=== PATIENT | male | born 1950 | race Hispanic/Latino ===

== ENCOUNTER 2024-10-04 15:38 | Inpatient (IN) | payer OTHER ==
[2024-10-04] MEDS ORDERED: Cefepime 2 GM VIAL ONE (16:34)
[2024-10-04 17:03] LABS: #Basophils 0.05 10x3/uL (0.0-0.2); #Eosinophils Less than 0.03 10x3/uL (0.0-0.7); #Monocytes 1.47 10x3/uL (0.11-0.59); #Neutrophils 19.02 10x3/uL (1.40-6.50); %Basophils 0.2 % (0.0-1.0); %Eosinophils 0.0 % (0.0-10.0); %Lymphocytes 6.7 % (21.0-51.0); %Monocytes 6.6 % (0.0-10.0); %Neutrophils 86.0 % (42.0-75.0); Hematocrit 34.2 % (42.0-52.0); Hemoglobin 11.5 g/dL (14.0-18.0); Mean Corpuscular Hemoglobin 29.0 pg (27.0-31.0); Mean Corpuscular Volume 86.1 fL (78.0-98.0); Platelet Count 427 10x3/uL (130-400); Red Blood Cell (RBC) Count 3.97 mill/uL (4.70-6.10); White Blood Cell (WBC) Count 22.15 10x3/uL (4.8-10.8)
[2024-10-04 17:26] LABS: Actual Bicarbonate (HCO3v) 22.6 mEq/L (22-28); Base Excess -2.1 mEq/L (-2.0 to +3.0); Calcium, Ionized (venous) 1.21 mmol/L (1.16-1.32); Chloride (VBG) 100 mmol/L (98-106); Hematocrit-VBG 35 % (42.0-52.0); Hemoglobin (Hb) 12.0 g/dL (12.6-17.4); Potassium (VBG) 4.34 mmol/L (3.70-5.30); Sodium 133 mmol/L (133-146)
[2024-10-04 17:26] LABS: ALT (SGPT) 25 U/L (Less than 45); AST (SGOT) 39 U/L (11-34); Albumin 3.0 g/dL (3.1-4.5); Alkaline Phosphatase 139 U/L (40-110); Anion Gap 15 mmol/L (10-20); BUN (Urea Nitrogen) 21 mg/dL (8.4-25.7); Bilirubin, Total 0.5 mg/dL (0.3-1.2); Calc. Creatinine Clearance 0 mL/min (70-130); Calcium 9.9 mg/dL (7.8-10.44); Carbon Dioxide 22 mmol/L (23-31); Chloride 98 mmol/L (98-107); Globulin 5.3 g/dL (2.4-3.5); Glucose 249 mg/dL (83-110); Potassium 4.3 mmol/L (3.5-5.1); Sodium 131 mmol/L (136-145)
[2024-10-04] MEDS ORDERED: VANCOMYCIN 2 GRAM/400 ML BAG ONE (17:26)
[2024-10-04] MEDS ORDERED: Electrolyte Replacement Protocol 1 EACH FS SCH (19:19)
[2024-10-04] MEDS ORDERED: Glucagon 1 MG/ML KIT IM PRN (19:33)
[2024-10-04] MEDS ORDERED: Dextrose 50% Abboject 50 ML SYRINGE SLOW IVP PRN (19:33)
[2024-10-04] MEDS ORDERED: Ondansetron PF 4 MG/2 ML Vial IVP PRN (19:35)
[2024-10-04] MEDS ORDERED: Acetaminophen/Codeine 30-300mg Tablet PO PRN (19:35)
[2024-10-04] MEDS ORDERED: Calcium Carbonate 500 MG ChewTAB PO PRN (19:35)
[2024-10-04 21:55] VITALS: BMI 29.3
[2024-10-04] MEDS: Heparin 5,000 UNITS/ML VIAL SC SCH (22:37)
[2024-10-04] MEDS: Famotidine 20 MG TAB PO SCH (22:37)
[2024-10-04] MEDS: Clindamycin/D5W 900 MG in Premix 1 BAG IVPB SCH (23:29)
[2024-10-05] MEDS: Insulin NPH Human Isophane 100 UNITS/ML (10 ML VIAL) SC SCH (01:57)
[2024-10-05 04:54] LABS: #Basophils 0.04 10x3/uL (0.0-0.2); #Eosinophils 0.08 10x3/uL (0.0-0.7); #Monocytes 1.07 10x3/uL (0.11-0.59); #Neutrophils 10.95 10x3/uL (1.40-6.50); %Basophils 0.3 % (0.0-1.0); %Eosinophils 0.6 % (0.0-10.0); %Lymphocytes 14.9 % (21.0-51.0); %Monocytes 7.5 % (0.0-10.0); %Neutrophils 76.3 % (42.0-75.0); Hematocrit 28.0 % (42.0-52.0); Hemoglobin 9.2 g/dL (14.0-18.0); Mean Corpuscular Hemoglobin 28.8 pg (27.0-31.0); Mean Corpuscular Volume 87.8 fL (78.0-98.0); Platelet Count 342 10x3/uL (130-400); Red Blood Cell (RBC) Count 3.19 mill/uL (4.70-6.10); White Blood Cell (WBC) Count 14.33 10x3/uL (4.8-10.8)
[2024-10-05 05:15] LABS: Vancomycin, Random 15.1 ug/mL (See Comment)
[2024-10-05 05:16] LABS: CRP, High Sensitivity at Bryan 8.41 mg/dL (< or = 0.5); Magnesium 1.6 mg/dL (1.6-2.6)
[2024-10-05 05:17] LABS: ALT (SGPT) 17 U/L (Less than 45); AST (SGOT) 19 U/L (11-34); Albumin 2.3 g/dL (3.1-4.5); Alkaline Phosphatase 106 U/L (40-110); Anion Gap 12 mmol/L (10-20); BUN (Urea Nitrogen) 20 mg/dL (8.4-25.7); Bilirubin, Total 0.3 mg/dL (0.3-1.2); Calc. Creatinine Clearance 86 mL/min (70-130); Calcium 8.8 mg/dL (7.8-10.44); Carbon Dioxide 20 mmol/L (23-31); Chloride 109 mmol/L (98-107); Globulin 4.0 g/dL (2.4-3.5); Glucose 200 mg/dL (83-110); Potassium 3.7 mmol/L (3.5-5.1); Sodium 137 mmol/L (136-145)
[2024-10-05] MEDS ORDERED: Lidocaine 1% (PF) 30 ML VIAL ONE (06:37)
[2024-10-05] MEDS ORDERED: PROPOFOL 20 ML ONE (07:13)
[2024-10-05] MEDS ORDERED: fentaNYL PF 100 MCG/2 ML SYRINGE ONE (07:13)
[2024-10-05] MEDS ORDERED: Ondansetron PF 4 MG/2 ML Vial ONE (07:47)
[2024-10-05] MEDS: Aspirin 81 mg Enteric Coated Tablet PO SCH (09:31)
[2024-10-05] MEDS: Lisinopril 5 MG TAB PO SCH (10:14)
[2024-10-05] MEDS: Magnesium 2 GM/50 ML(in water) Premix IVPB SCH ×2 (10:15→10:20)
[2024-10-05 10:44] VITALS: BMI 29.3
[2024-10-05] MEDS: Vancomycin 1 GM in Premix 1 BAG IVPB SCH (11:31)
[2024-10-05] MEDS: Vancomycin HCl 750 MG in Sodium Chloride 0.9% 250 ML 250 ML IVPB SCH (21:34)
[2024-10-06 05:14] LABS: #Basophils 0.04 10x3/uL (0.0-0.2); #Eosinophils 0.13 10x3/uL (0.0-0.7); #Monocytes 0.90 10x3/uL (0.11-0.59); #Neutrophils 11.55 10x3/uL (1.40-6.50); %Basophils 0.3 % (0.0-1.0); %Eosinophils 0.9 % (0.0-10.0); %Lymphocytes 15.3 % (21.0-51.0); %Monocytes 6.0 % (0.0-10.0); %Neutrophils 77.0 % (42.0-75.0); Hematocrit 27.6 % (42.0-52.0); Hemoglobin 9.2 g/dL (14.0-18.0); Mean Corpuscular Hemoglobin 29.0 pg (27.0-31.0); Mean Corpuscular Volume 87.1 fL (78.0-98.0); Platelet Count 371 10x3/uL (130-400); Red Blood Cell (RBC) Count 3.17 mill/uL (4.70-6.10); White Blood Cell (WBC) Count 14.99 10x3/uL (4.8-10.8)
[2024-10-06 05:52] LABS: ALT (SGPT) 14 U/L (Less than 45); AST (SGOT) 17 U/L (11-34); Albumin 2.2 g/dL (3.1-4.5); Alkaline Phosphatase 111 U/L (40-110); Anion Gap 11 mmol/L (10-20); BUN (Urea Nitrogen) 11 mg/dL (8.4-25.7); Bilirubin, Total 0.3 mg/dL (0.3-1.2); Calc. Creatinine Clearance 87 mL/min (70-130); Calcium 8.5 mg/dL (7.8-10.44); Carbon Dioxide 20 mmol/L (23-31); Chloride 109 mmol/L (98-107); Globulin 4.1 g/dL (2.4-3.5); Glucose 125 mg/dL (83-110); Magnesium 1.6 mg/dL (1.6-2.6); Potassium 3.9 mmol/L (3.5-5.1); Sodium 136 mmol/L (136-145)
[2024-10-06] MEDS: Magnesium 2 GM/50 ML(in water) 2 GM in Premix 1 BAG IVPB SCH (09:08)
[2024-10-06] MEDS: Acetaminophen 325 MG TAB PO PRN (11:51)
[2024-10-06] MEDS: Cefepime 2 GM VIAL ONE (16:32)
[2024-10-06] MEDS: Enoxaparin 40 MG (0.4 mL) SYRINGE SC SCH (23:00)
[2024-10-06] MEDS: Senokot S 8.6-50 MG TAB PO PRN (23:00)
[2024-10-07 04:42] LABS: #Basophils 0.04 10x3/uL (0.0-0.2); #Eosinophils 0.38 10x3/uL (0.0-0.7); #Monocytes 0.84 10x3/uL (0.11-0.59); #Neutrophils 9.70 10x3/uL (1.40-6.50); %Basophils 0.3 % (0.0-1.0); %Eosinophils 2.9 % (0.0-10.0); %Lymphocytes 15.2 % (21.0-51.0); %Monocytes 6.5 % (0.0-10.0); %Neutrophils 74.8 % (42.0-75.0); Hematocrit 29.0 % (42.0-52.0); Hemoglobin 9.6 g/dL (14.0-18.0); Mean Corpuscular Hemoglobin 29.0 pg (27.0-31.0); Mean Corpuscular Volume 87.6 fL (78.0-98.0); Platelet Count 370 10x3/uL (130-400); Red Blood Cell (RBC) Count 3.31 mill/uL (4.70-6.10); White Blood Cell (WBC) Count 12.97 10x3/uL (4.8-10.8)
[2024-10-07 04:59] LABS: Vancomycin, Random 19.9 ug/mL (See Comment)
[2024-10-08] MEDS ORDERED: fentaNYL PF 100 MCG/2 ML SYRINGE ONE ×2 (14:06→14:51)
[2024-10-08] MEDS ORDERED: Lidocaine 1% PF 5 ML VIAL ONE (14:06)
[2024-10-08] MEDS ORDERED: Rocuronium Bromide 10 MG/ML (10ML VIAL) ONE (14:06)
[2024-10-08] MEDS ORDERED: PROPOFOL 20 ML ONE (14:06)
[2024-10-08] MEDS ORDERED: Ondansetron PF 4 MG/2 ML Vial ONE (14:06)
[2024-10-08] MEDS ORDERED: PHENYLEPHRINE-NS 100 MCG/ML 10 ML SYRINGE ONE (15:18)
[2024-10-09 05:56] LABS: #Basophils Less than 0.03 10x3/uL (0.0-0.2); #Eosinophils Less than 0.03 10x3/uL (0.0-0.7); #Monocytes 0.61 10x3/uL (0.11-0.59); #Neutrophils 13.01 10x3/uL (1.40-6.50); %Basophils 0.1 % (0.0-1.0); %Eosinophils 0.0 % (0.0-10.0); %Lymphocytes 5.2 % (21.0-51.0); %Monocytes 4.2 % (0.0-10.0); %Neutrophils 90.0 % (42.0-75.0); Hematocrit 29.3 % (42.0-52.0); Hemoglobin 9.8 g/dL (14.0-18.0); Mean Corpuscular Hemoglobin 28.7 pg (27.0-31.0); Mean Corpuscular Volume 85.9 fL (78.0-98.0); Platelet Count 451 10x3/uL (130-400); Red Blood Cell (RBC) Count 3.41 mill/uL (4.70-6.10); White Blood Cell (WBC) Count 14.45 10x3/uL (4.8-10.8)
[2024-10-09 06:04] LABS: Anion Gap 15 mmol/L (10-20); BUN (Urea Nitrogen) 16 mg/dL (8.4-25.7); Calc. Creatinine Clearance 86 mL/min (70-130); Calcium 9.4 mg/dL (7.8-10.44); Carbon Dioxide 20 mmol/L (23-31); Chloride 100 mmol/L (98-107); Glucose 264 mg/dL (83-110); Potassium 4.9 mmol/L (3.5-5.1); Sodium 130 mmol/L (136-145)
[2024-10-09] MEDS: HYDROcodone/Acetaminophen 10/325 mg Tablet PO PRN (13:59)
[2024-10-09] MEDS: metroNIDAZOLE 500 MG TAB PO SCH (17:34)
[2024-10-09] MEDS: Gabapentin 300 MG CAP PO SCH (20:28)
[2024-10-09] MEDS: Ciprofloxacin 500 MG TAB PO SCH (20:28)
[2024-10-10 12:55] LABS: Anion Gap 12 mmol/L (10-20); BUN (Urea Nitrogen) 18 mg/dL (8.4-25.7); Calc. Creatinine Clearance 77 mL/min (70-130); Calcium 9.6 mg/dL (7.8-10.44); Carbon Dioxide 24 mmol/L (23-31); Chloride 103 mmol/L (98-107); Glucose 197 mg/dL (83-110); Potassium 4.9 mmol/L (3.5-5.1); Sodium 134 mmol/L (136-145)
[2024-10-11] MEDS: Senokot S 8.6-50 MG TAB PO SCH (11:19)
[2024-10-11] MEDS: HumuLIN 70/30 100 Unit/ml 10 ml Vial SC SCH (21:33)
[2024-10-12 05:52] LABS: #Basophils 0.05 10x3/uL (0.0-0.2); #Eosinophils 0.43 10x3/uL (0.0-0.7); #Monocytes 0.95 10x3/uL (0.11-0.59); #Neutrophils 5.95 10x3/uL (1.40-6.50); %Basophils 0.5 % (0.0-1.0); %Eosinophils 4.4 % (0.0-10.0); %Lymphocytes 24.4 % (21.0-51.0); %Monocytes 9.7 % (0.0-10.0); %Neutrophils 60.6 % (42.0-75.0); Hematocrit 28.0 % (42.0-52.0); Hemoglobin 9.1 g/dL (14.0-18.0); Mean Corpuscular Hemoglobin 29.0 pg (27.0-31.0); Mean Corpuscular Volume 89.2 fL (78.0-98.0); Platelet Count 433 10x3/uL (130-400); Red Blood Cell (RBC) Count 3.14 mill/uL (4.70-6.10); White Blood Cell (WBC) Count 9.81 10x3/uL (4.8-10.8)
[2024-10-12 06:04] LABS: Anion Gap 11 mmol/L (10-20); BUN (Urea Nitrogen) 20 mg/dL (8.4-25.7); Calc. Creatinine Clearance 76 mL/min (70-130); Calcium 9.7 mg/dL (7.8-10.44); Carbon Dioxide 24 mmol/L (23-31); Chloride 104 mmol/L (98-107); Glucose 172 mg/dL (83-110); Magnesium 1.9 mg/dL (1.6-2.6); Potassium 4.5 mmol/L (3.5-5.1); Sodium 134 mmol/L (136-145)
[2024-10-12] MEDS: Magnesium 2 GM/50 ML(in water) 2 GM in Premix 1 BAG IVPB SCH (09:04)
[2024-10-12] MEDS: HYDROcodone/Acetaminophen 10/325 mg Tablet PO PRN (12:24)
[2024-10-13] MEDS: HYDROcodone/Acetaminophen 10/325 mg Tablet PO PRN (05:07)
[2024-10-16] MEDS: Senokot 8.6 MG TAB PO SCH (11:20)
[2024-10-17] MEDS: Senokot S 8.6-50 MG TAB PO SCH (20:08)
[2024-10-18] MEDS: Milk Of Magnesia 30 ML UDCUP PO PRN (20:40)
[2024-10-21 04:56] LABS: Hematocrit 27.2 % (42.0-52.0); Hemoglobin 8.6 g/dL (14.0-18.0); Platelet Count 434 10x3/uL (130-400)
[2024-10-23 08:45] LABS: #Basophils 0.09 10x3/uL (0.0-0.2); #Eosinophils 0.66 10x3/uL (0.0-0.7); #Monocytes 0.67 10x3/uL (0.11-0.59); #Neutrophils 4.57 10x3/uL (1.40-6.50); %Basophils 1.0 % (0.0-1.0); %Eosinophils 7.5 % (0.0-10.0); %Lymphocytes 31.5 % (21.0-51.0); %Monocytes 7.6 % (0.0-10.0); %Neutrophils 52.2 % (42.0-75.0); Hematocrit 31.1 % (42.0-52.0); Hemoglobin 9.7 g/dL (14.0-18.0); Mean Corpuscular Hemoglobin 28.1 pg (27.0-31.0); Mean Corpuscular Volume 90.1 fL (78.0-98.0); Platelet Count 442 10x3/uL (130-400); Red Blood Cell (RBC) Count 3.45 mill/uL (4.70-6.10); White Blood Cell (WBC) Count 8.77 10x3/uL (4.8-10.8)
[2024-10-23 09:01] LABS: Anion Gap 13 mmol/L (10-20); BUN (Urea Nitrogen) 29 mg/dL (8.4-25.7); Calc. Creatinine Clearance 96 mL/min (70-130); Calcium 10.4 mg/dL (7.8-10.44); Carbon Dioxide 23 mmol/L (23-31); Chloride 106 mmol/L (98-107); Glucose 157 mg/dL (83-110); Potassium 4.6 mmol/L (3.5-5.1); Sodium 137 mmol/L (136-145)
[2024-10-23 16:31] VITALS: BP 121/68; TEMP 97.6
== END 2024-10-23 19:28 | DRG 616 ==
LOC: EEVIPCON 15:38 → ERS 15:38 → SURG A 19:28
PROVIDERS: ADMIT Internal Medicine; ATTEND Internal Medicine
PROC: 3E03329 Introduction of Other Anti-infective into Peripheral Vein, Percutaneous Approach (ICD-10-PCS; 2024-10-04)
PROC: 0Y6N0Z9 Detachment at Left Foot, Partial 1st Ray, Open Approach (ICD-10-PCS; principal; 2024-10-05)
PROC: 0Y6J0Z1 Detachment at Left Lower Leg, High, Open Approach (ICD-10-PCS; 2024-10-09)
DX: E11.69 Type 2 diabetes mellitus with other specified complication (principal); A41.4 Sepsis due to anaerobes; A41.9 Sepsis, unspecified organism; A41.59 Other Gram-negative sepsis; E11.52 Type 2 diabetes mellitus with diabetic peripheral angiopathy with gangrene; E87.1 Hypo-osmolality and hyponatremia; M86.8X7 Other osteomyelitis, ankle and foot; I96 Gangrene, not elsewhere classified; E11.22 Type 2 diabetes mellitus with diabetic chronic kidney disease; I12.9 Hypertensive chronic kidney disease with stage 1 through stage 4 chronic kidney disease, or unspecified chronic kidney disease; E78.5 Hyperlipidemia, unspecified; N18.2 Chronic kidney disease, stage 2 (mild); N40.0 Benign prostatic hyperplasia without lower urinary tract symptoms; M10.9 Gout, unspecified; K21.9 Gastro-esophageal reflux disease without esophagitis; E88.09 Other disorders of plasma-protein metabolism, not elsewhere classified; K59.00 Constipation, unspecified; Z98.890 Other specified postprocedural states; Z89.421 Acquired absence of other right toe(s); Z79.82 Long term (current) use of aspirin; Z79.4 Long term (current) use of insulin; Z79.899 Other long term (current) drug therapy; Z89.411 Acquired absence of right great toe; Z90.49 Acquired absence of other specified parts of digestive tract
CPT/HCPCS: 36415; 36416; 71045; 80048; 80053; 80202; 82805; 83036; 83605; 83735; 85014; 85018; 85025; 85049; 86141; 87040; 87070; 87076; 87077; 87186; 87205; 88305; 88307; 88311; 94760; 96365; 96367; 96368; 96375; 97139; J0665; J0692; J1100; J1644; J1650; J1815; J2270; J2405; J2704; J3010; J3373; J3375; J3475; J3490; J7030; J7050